=== PATIENT | female | born 1970 | race Caucasian/White ===

== ENCOUNTER 2020-08-13 07:10 | Outpatient (CLI) | payer BC | END 2020-08-13 07:11 | disposition home or self-care (01) | LOC: CSHLAB 07:10 | PROVIDERS: ATTEND Obstetrics & Gynecology | DX: Z01.812 Encounter for preprocedural laboratory examination (principal); Z20.822 Contact with and (suspected) exposure to COVID-19; N83.202 Unspecified ovarian cyst, left side; N70.11 Chronic salpingitis | CPT/HCPCS: 85027; 86850; 86900; 86901; 87635; U0003; U0005 ==

== ENCOUNTER 2020-08-18 10:27 | Day surgery (SDC) | payer OTHER ==
[2020-08-13 09:41] LABS: Hemoglobin 13.1 g/dL (12.0-15.5); Mean Corpuscular HGB CONC 32.3 g/dL (32.0-36.0); Mean Corpuscular Volume 92.9 fl (81.6-98.3); Mean Platelet Volume 10.2 fl (7.4-10.4); Platelet Count 311 10x3/uL (150-450); RBC Distribution Width 12.4 % (11.5-14.5); Red Blood Cell (RBC) Count 4.36 10x6/uL (3.90-5.03); White Blood Cell (WBC) Count 7.8 10x3/uL (3.5-10.5)
[2020-08-13 17:46] LABS: SARS-CoV-2 PCR by NAA Not Detected (NotDetected)
[2020-08-16 14:56] VITALS: BMI 34.7
[2020-08-18] MEDS ORDERED: Gabapentin 300 MG CAP ONE (10:36)
[2020-08-18] MEDS ORDERED: Lidocaine 1% MPF 2 ML VIAL ONE (10:36)
[2020-08-18] MEDS ORDERED: Famotidine/PF 20 mg/2ml Vial ONE (10:36)
[2020-08-18] MEDS ORDERED: CeleCOXIB 100 MG CAP ONE (10:36)
[2020-08-18] MEDS ORDERED: Ketorolac Tromethamine 30 MG/ML VIAL ONE (12:12)
[2020-08-18] MEDS ORDERED: Dexamethasone 20 MG/5 ML VIAL ONE (12:12)
[2020-08-18] MEDS ORDERED: Midazolam HCl 2 mg/2 ml Vial ONE (12:12)
[2020-08-18] MEDS ORDERED: Ondansetron PF 4 MG/2 ML Vial ONE (12:12)
[2020-08-18] MEDS ORDERED: Fentanyl 100 MCG/2 ML VIAL ONE (12:12)
[2020-08-18] MEDS ORDERED: Rocuronium Bromide 10 MG/ML (10ML VIAL) ONE (12:12)
[2020-08-18] MEDS ORDERED: PROPOFOL 20 ML ONE (12:12)
[2020-08-18] MEDS ORDERED: SUGAMMADEX SODIUM 500 MG/5 ML VIAL ONE (12:13)
[2020-08-18] MEDS ORDERED: EPINEPHrine 1 MG/ML AMP ONE (12:20)
[2020-08-18] MEDS ORDERED: Bupivacaine PF 0.5% 30 ML VIAL ONE (12:20)
[2020-08-18] MEDS ORDERED: Glycopyrrolate 0.2 MG/ML 5 ML SYRINGE ONE (12:48)
== END 2020-08-18 16:45 | disposition home or self-care (01) ==
LOC: CSHSDC 10:27
PROVIDERS: ATTEND Obstetrics & Gynecology
PROC: 0UT74ZZ Resection of Bilateral Fallopian Tubes, Percutaneous Endoscopic Approach (ICD-10-PCS; principal; 2020-08-18)
PROC: 0UT24ZZ Resection of Bilateral Ovaries, Percutaneous Endoscopic Approach (ICD-10-PCS; principal; 2020-08-18)
DX: N70.11 Chronic salpingitis (principal); G89.29 Other chronic pain; R10.32 Left lower quadrant pain; N73.6 Female pelvic peritoneal adhesions (postinfective); Z90.710 Acquired absence of both cervix and uterus; Z20.822 Contact with and (suspected) exposure to COVID-19
CPT/HCPCS: 85027; 86850; 86900; 86901; 87635; 88305; J0171; J0690; J1100; J1885; J2250; J2405; J2704; J3010; S0020; S0028; U0003; U0005